=== PATIENT | male | born 1995 | race Caucasian/White ===

== ENCOUNTER 2019-05-08 11:10 | Emergency (ER) | payer MEDICAID ==
[~2019-05-08] VITALS: Ht 190.5 cm; Wt 127.0 kg
[2019-05-08 11:35] VITALS: Ht 190.5 cm; Wt 127.0 kg
[2019-05-08 15:49] VITALS: BP 136/85
== END 2019-05-08 16:02 | disposition home or self-care (01) ==
LOC: ED 11:10
DX: M10.061 Idiopathic gout, right knee (principal)
CPT/HCPCS: J1885

== ENCOUNTER 2019-10-11 07:37 | Emergency (ER) | payer SELFPAY ==
[~2019-10-11] VITALS: Ht 188 cm; Wt 127.5 kg
[2019-10-11 07:46] VITALS: Ht 188 cm; Wt 127.5 kg
[2019-10-11 08:27] VITALS: BP 131/76
== END 2019-10-11 08:27 | disposition home or self-care (01) ==
LOC: ED 07:37
DX: M10.042 Idiopathic gout, left hand (principal); M10.061 Idiopathic gout, right knee; M10.032 Idiopathic gout, left wrist
CPT/HCPCS: J1885; J2930

== ENCOUNTER 2019-10-24 12:08 | Emergency (ER) | payer SELFPAY ==
[~2019-10-24] VITALS: Ht 188 cm; Wt 127.9 kg
[2019-10-24 12:17] VITALS: BP 162/81; Ht 188 cm; Wt 127.9 kg
== END 2019-10-24 13:11 | disposition home or self-care (01) ==
LOC: ED 12:08
DX: M10.9 Gout, unspecified (principal); M25.532 Pain in left wrist
CPT/HCPCS: J1100

== ENCOUNTER 2019-11-06 17:07 | Emergency (ER) | payer SELFPAY ==
[~2019-11-06] VITALS: Ht 188 cm; Wt 129.3 kg
[2019-11-06 17:19] VITALS: BP 151/92; Ht 188 cm; Wt 129.3 kg
== END 2019-11-06 18:29 | disposition home or self-care (01) ==
LOC: ED 17:07
DX: M10.9 Gout, unspecified (principal)
CPT/HCPCS: J1885; J2930

== ENCOUNTER 2020-03-23 14:38 | Emergency (ER) | payer MEDICAID ==
[~2020-03-23] VITALS: Ht 188 cm; Wt 144.7 kg
[2020-03-23 14:56] VITALS: Ht 188 cm; Wt 144.7 kg
[2020-03-23 16:32] VITALS: BP 141/82
== END 2020-03-23 16:32 | disposition home or self-care (01) ==
LOC: ED 14:38
DX: M10.9 Gout, unspecified (principal)
CPT/HCPCS: J1100; J1885

== ENCOUNTER 2020-04-24 05:21 | Emergency (ER) | payer SELFPAY ==
[~2020-04-24] VITALS: Ht 188 cm; Wt 147.1 kg
[2020-04-24 05:46] VITALS: Ht 188 cm; Wt 147.1 kg
[2020-04-24 06:46] VITALS: BP 148/89
== END 2020-04-24 06:46 | disposition home or self-care (01) ==
LOC: ED 05:21
DX: M10.9 Gout, unspecified (principal)
CPT/HCPCS: J1885; J2930

== ENCOUNTER 2020-05-12 03:38 | Emergency (ER) | payer SELFPAY ==
[~2020-05-12] VITALS: Ht 188 cm; Wt 142.4 kg
[2020-05-12 03:59] VITALS: Ht 188 cm; Wt 142.4 kg
[2020-05-12 05:05] VITALS: BP 151/94
== END 2020-05-12 05:05 | disposition home or self-care (01) ==
LOC: ED 03:38
DX: M10.9 Gout, unspecified (principal)
CPT/HCPCS: J1885

== ENCOUNTER 2020-06-02 05:29 | Emergency (ER) | payer MEDICAID ==
[~2020-06-02] VITALS: Ht 188 cm; Wt 136.1 kg
[2020-06-02 05:42] VITALS: Ht 188 cm; Wt 136.1 kg
[2020-06-02 06:31] VITALS: BP 142/90
== END 2020-06-02 06:31 | disposition home or self-care (01) ==
LOC: ED 05:29
DX: M10.9 Gout, unspecified (principal)
CPT/HCPCS: J1885; J2920